=== PATIENT | female | born 1980 | race Caucasian/White ===

== ENCOUNTER 2018-07-15 18:40 | Emergency (ER) | payer MEDICARE, MEDICAID ==
[~2018-07-15] VITALS: Ht 152.4 cm; Wt 68.9 kg
[2018-07-15] MEDS ORDERED: TESSALON PERLE100 M1 PO (18:54)
[2018-07-15] MEDS ORDERED: ZITHROMAX250 MG PO (18:54)
== END 2018-07-15 19:00 | disposition home or self-care (01) ==
LOC: ED 18:40
DX: J02.9 Acute pharyngitis, unspecified (principal); R05 Cough; F17.200 Nicotine dependence, unspecified, uncomplicated; Z88.0 Allergy status to penicillin